=== PATIENT | female | born 1950 | race Caucasian/White ===

== ENCOUNTER → 2017-04-01 | Outpatient (CLI) | payer MEDICARE ==
--- NOTE | 2017-04-02 12:08 | MM ---
Reason for exam: screening (asymptomatic). Last mammogram was performed 1 year ago. History: Patient is postmenopausal. Took estrogen for 10 years beginning at age 35. Physical Findings: A clinical breast exam by your physician is recommended on an annual basis and results should be correlated with mammographic findings. MG 3D Screening Mammo W/Cad Bilateral CC and MLO view(s) were taken. Prior study comparison: March 23, 2016, bilateral MG 3d screening mammo w/cad. March 20, 2015, bilateral MG diagnostic mammo w CAD ILDA. The breast tissue is heterogeneously dense. This may lower the sensitivity of mammography. Focal asymmetry in the left upper outer quadrant is stable. No significant changes when compared with prior studies. ASSESSMENT: Benign, BI-RAD 2 RECOMMENDATION: Routine screening mammogram of both breasts in 1 year.
== END | disposition home or self-care (01) ==
LOC: RADMAMWWP 15:45
PROVIDERS: ATTEND Family Medicine
DX: Z12.31 Encounter for screening mammogram for malignant neoplasm of breast (principal)
CPT/HCPCS: 77063; G0202

== ENCOUNTER → 2017-06-16 | Outpatient (CLI) | payer MEDICARE ==
--- NOTE | 2017-06-16 09:02 | US ---
EXAMINATION TYPE: US liver DATE OF EXAM: 06/16/2017 COMPARISON: 06/30/2016 CLINICAL HISTORY: Hepatitis B B18.1. EXAM MEASUREMENTS: Liver Length: 14.3 cm Gallbladder Wall: 0.2 cm CBD: 0.3 cm Right Kidney: 10.9 x 4.7 x 4.8 cm Pancreas: limited vis Liver: Coarsened heterogenous echotexture that limits evaluation for underlying masses. This is simil ar in degree from the prior. Gallbladder: No stones seen Evidence for sonographic Smith's sign: No CBD: wnl Right Kidney: No hydronephrosis or masses seen IMPRESSION: Stable degree of coarsened hepatic echotexture, likely relating to the patient's underlyi ng known hepatocellular disease although component of fatty infiltration is also possible. No discret e sonographic masses appreciated on this examination.
== END ==
LOC: RADUSWWP 08:12
PROVIDERS: ATTEND Internal Medicine Gastroenterology
DX: B18.1 Chronic viral hepatitis B without delta-agent (principal)
CPT/HCPCS: 76705

== ENCOUNTER → 2018-03-30 | Outpatient (CLI) | payer MEDICARE ==
--- NOTE | 2018-03-30 10:16 | CT ---
EXAMINATION TYPE: CT chest wo con DATE OF EXAM: 03/30/2018 COMPARISON: NONE HISTORY: Cough CT DLP: 701 mGycm, Automated exposure control for dose reduction was used. CONTRAST: Performed injected with 0 mL of Isovue 370. TECHNIQUE: Axial images were obtained at 5 mm thick sections. Reconstructed images are reviewed on [employer] computer in the coronal plane. FINDINGS: Portion of the thyroid visualized is normal. There is a 0.6 cm area of increased density within the mid right middle lobe. Series 4 image 28. Subt le peripheral density measuring 0.4 cm in the posterior lateral right lung. Series 4 image 32. A tiny density or area of pneumonitis change is in the posterior right midlung measuring approximately 0.2 cm. Series 4 image 34. Tiny linear density is adjacent to the left posterior lateral lung No enlarged mediastinal or hilar adenopathy is evident. Small pretracheal lymph node is present dru r the level of the isac. The ascending aorta diameter at the level of the main pulmonary artery is 3.2 cm. The main pulmonary artery diameter at the bifurcation is 2.6 cm. Mild coronary artery calcification is noted. Limited CT sections are obtained through the upper abdomen. Abdomen is essentially unremarkable. IMPRESSIONS: 1. Few nonspecific lung findings discussed above. Follow-up exam can be performed in 6 months to conf irm stability. 2. No acute pulmonary process.
== END | disposition home or self-care (01) ==
LOC: RADCTMAIN 07:55
PROVIDERS: ATTEND Family Medicine
DX: R05 Cough (principal)
CPT/HCPCS: 71250

== ENCOUNTER → 2018-03-30 | Outpatient (CLI) | payer MEDICARE ==
[2018-03-30 09:29] LABS: Prothrombin Time 9.7 sec (9.0-12.0)
[2018-03-30 09:35] LABS: Albumin 4.1 g/dL (3.5-5.0); Calcium 9.6 mg/dL (8.4-10.2); Potassium 4.4 mmol/L (3.5-5.1); Total Protein 6.4 g/dL (6.3-8.2)
[2018-03-30 09:50] LABS: HCT 39.2 % (34.0-46.0); HGB 13.3 gm/dL (11.4-16.0); MCH 31.7 pg (25.0-35.0); MCHC 33.9 g/dL (31.0-37.0); MCV 93.6 fL (80.0-100.0); Mean Platelet Volume 6.7; Platelet Count 227 k/uL (150-450); RBC 4.19 m/uL (3.80-5.40); WBC 4.6 k/uL (3.8-10.6)
[2018-03-30 17:33] LABS: Gliadin AB IgA, Unit 92.7 U/mL
== END | disposition home or self-care (01) ==
LOC: LABWHC1 08:32
PROVIDERS: ATTEND Internal Medicine Gastroenterology
DX: B18.1 Chronic viral hepatitis B without delta-agent (principal); R21 Rash and other nonspecific skin eruption
CPT/HCPCS: 36415; 80053; 82105; 83516; 85027; 85610; 87340

== ENCOUNTER → 2018-04-27 | Outpatient (CLI) | payer MEDICARE ==
--- NOTE | 2018-04-28 15:27 | MM ---
Reason for exam: screening (asymptomatic). Last mammogram was performed 1 year and 1 month ago. History: Patient is postmenopausal. Took estrogen for 10 years beginning at age 35. Physical Findings: A clinical breast exam by your physician is recommended on an annual basis and results should be correlated with mammographic findings. MG 3D Screening Mammo W/Cad Bilateral CC and MLO view(s) were taken. Prior study comparison: April 01, 2017, bilateral MG 3d screening mammo w/cad. March 23, 2016, bilateral MG 3d screening mammo w/cad. Finding: There are dystrophic calcifications in the upper quadrant of the left breast. Asymmetric breast tissue in the left subareolar breast, stable. There is no discrete abnormality. ASSESSMENT: Benign, BI-RAD 2 RECOMMENDATION: Routine screening mammogram of both breasts in 1 year.
== END | disposition home or self-care (01) ==
LOC: RADMAMWWP 10:38
PROVIDERS: ATTEND Family Medicine
DX: Z12.31 Encounter for screening mammogram for malignant neoplasm of breast (principal)
CPT/HCPCS: 77063; 77067

== ENCOUNTER → 2018-09-06 | Outpatient (CLI) | payer MEDICARE ==
--- NOTE | 2018-09-06 10:51 | XR ---
EXAMINATION TYPE: XR knee standing AP BILAT DATE OF EXAM: 09/06/2018 CLINICAL HISTORY: Bilateral knee pain with no known injury. No arthritis. TECHNIQUE: Standing frontal and lateral views of the bilateral knees were obtained. COMPARISON: 03/07/2012. FINDINGS: There is no acute fracture/dislocation evident in in either knee. The overlying soft tissu es appear unremarkable bilaterally. No superficial or joint effusion bilaterally. There is moderate tricompartmental arthropathy on the right and mild tricompartmental arthropathy in the left with small marginal osteophytes, opposing surface sclerosis, and tricompartmental joint spac e narrowing. On the left joint space narrowing is most significant medially and on the right joint sp flori narrowing is most significant laterally. Bilaterally there is also medial compartment and lateral compartment chondrocalcinosis. No suspicious osseous lesion of either knee. Minimal atherosclerosis is seen of the popliteal artery bilaterally. Very small fabellae are seen bilaterally. IMPRESSION: 1. No acute fracture or dislocation in either knee. 2. Moderate right and mild left tricompartmental arthropathy and bilateral chondrocalcinosis that can be in CPPD or other arthropathies.
== END | disposition home or self-care (01) ==
LOC: RADXRMAIN 10:17
PROVIDERS: ATTEND Family Medicine
DX: M17.0 Bilateral primary osteoarthritis of knee (principal); M11.262 Other chondrocalcinosis, left knee; M11.261 Other chondrocalcinosis, right knee
CPT/HCPCS: 73565

== ENCOUNTER → 2019-05-10 | Outpatient (CLI) | payer MEDICARE ==
[2019-05-10 12:32] LABS: Prothrombin Time 10.8 sec (9.0-12.0)
[2019-05-10 12:37] LABS: HCT 41.8 % (34.0-46.0); HGB 13.9 gm/dL (11.4-16.0); MCH 31.3 pg (25.0-35.0); MCHC 33.2 g/dL (31.0-37.0); MCV 94.1 fL (80.0-100.0); Mean Platelet Volume 7.4; Platelet Count 260 k/uL (150-450); RBC 4.44 m/uL (3.80-5.40); RDW 13.4 % (11.5-15.5); WBC 5.3 k/uL (3.8-10.6)
[2019-05-10 18:15] LABS: African American GFR (CKD) 76.7 (60.0-200.0); Albumin 4.5 g/dL (3.80-4.90); Albumin/Globulin Ratio 2.25 (1.60-3.17); Anion Gap 8.4 mmol/L (4.00-12.00); BUN/Creat Ratio 16.67 Ratio (12.00-20.00); Calcium 9.6 mg/dL (8.7-10.3); Carbon Dioxide 26.6 mmol/L (21.6-31.8); Total Bilirubin 0.7 mg/dL (0.3-1.2); Total Protein 6.5 g/dL (6.2-8.2)
[2019-05-10 18:20] LABS: Alpha Fetoprotein, Tumor Mkr 3.9 ng/mL (0.0-7.9)
== END | disposition home or self-care (01) ==
LOC: LABWHC1 11:34
PROVIDERS: ATTEND Internal Medicine Gastroenterology
DX: B18.1 Chronic viral hepatitis B without delta-agent (principal)
CPT/HCPCS: 36415; 80053; 82105; 85027; 85610; 87340

== ENCOUNTER → 2019-05-10 | Outpatient (CLI) | payer MEDICARE ==
--- NOTE | 2019-05-10 14:24 | MM ---
Reason for exam: screening (asymptomatic). Last mammogram was performed 1 year ago. History: Patient is postmenopausal. Took estrogen for 10 years beginning at age 35. Physical Findings: A clinical breast exam by your physician is recommended on an annual basis and results should be correlated with mammographic findings. MG 3D Screening Mammo W/Cad Bilateral CC and MLO view(s) were taken. Prior study comparison: April 27, 2018, bilateral MG 3d screening mammo w/cad. April 01, 2017, bilateral MG 3d screening mammo w/cad. The breast tissue is heterogeneously dense. This may lower the sensitivity of mammography. There are benign appearing dystrophic calcifications in the left breast. Asymmetric breast tissue left anterior breast is stable. There is no discrete abnormality. ASSESSMENT: Negative, BI-RAD 1 RECOMMENDATION: Routine screening mammogram of both breasts in 1 year.
== END | disposition home or self-care (01) ==
LOC: RADMAMWWP 11:08
PROVIDERS: ATTEND Family Medicine
DX: Z12.31 Encounter for screening mammogram for malignant neoplasm of breast (principal)
CPT/HCPCS: 77063; 77067

== ENCOUNTER → 2019-06-13 | Outpatient (CLI) | payer MEDICARE ==
--- NOTE | 2019-06-13 09:58 | US ---
EXAMINATION TYPE: US liver DATE OF EXAM: 06/13/2019 COMPARISON: US dated 06/16/2017, CT, MR CLINICAL HISTORY: V02.61 hepatitis b carrier. Takes medication for HTN, high cholesterol, arthritis; takes Prozac and Vitamins EXAM MEASUREMENTS: Liver Length: 13.1 cm Gallbladder Wall: 0.25 cm CBD: 0.3 cm Right Kidney: 9.9 x 5.2 x 4.2 cm Pancreas: Unremarkable Liver: wnl Gallbladder: wnl Evidence for sonographic Smith's sign: no CBD: wnl Right Kidney: wnl IMPRESSION: The previously seen subtle coarsened hepatic echotexture has resolved in the hepatic echo texture appears within normal limits. The previously questioned component of fatty infiltration is li alyssia improved.
== END | disposition home or self-care (01) ==
LOC: RADUSMAIN 08:52
PROVIDERS: ATTEND Internal Medicine Gastroenterology
DX: B18.1 Chronic viral hepatitis B without delta-agent (principal)
CPT/HCPCS: 76705

== ENCOUNTER → 2020-08-08 | Outpatient (CLI) | payer MEDICARE ==
--- NOTE | 2020-08-08 10:50 | US ---
EXAMINATION TYPE: US liver DATE OF EXAM: 08/08/2020 COMPARISON: US June 13, 2019 and MRI liver July 16, 2014 CLINICAL HISTORY: B18.1 chronic viral hepatitis B w/o delta-agent. Takes medication for high choleste rol, arthritis, HTN and GI reflux. EXAM MEASUREMENTS: Liver Length: 14.4 Gallbladder Wall: 0.1m CBD: 0.2m Right Kidney: 10.4 x 5.3 x 4.5cm Pancreas: hyperechoic Liver: Increased attenuation Gallbladder: wnl Evidence for sonographic Smith's sign: no CBD: wnl Right Kidney: No hydronephrosis or masses seen Visualized liver remains heterogeneously hyperechoic without focal mass or ductal dilatation seen on images saved. No surrounding ascites. IMPRESSION: No new focal intrahepatic mass or intrahepatic ductal dilatation identified.
== END | disposition home or self-care (01) ==
LOC: RADUSWWP 08:49
PROVIDERS: ATTEND Internal Medicine Gastroenterology
DX: B18.1 Chronic viral hepatitis B without delta-agent (principal)
CPT/HCPCS: 76705

== ENCOUNTER → 2021-09-02 | Outpatient (CLI) | payer MEDICARE ==
--- NOTE | 2021-09-03 11:10 | MM ---
Reason for exam: screening (asymptomatic). Last mammogram was performed 1 year and 2 months ago. History: Patient is postmenopausal. Took hormonal contraceptives for 20 years. Took estrogen for 10 years beginning at age 35. Physical Findings: A clinical breast exam by your physician is recommended on an annual basis and results should be correlated with mammographic findings. MG 3D Screening Mammo W/Cad Bilateral CC and MLO view(s) were taken. Prior study comparison: July 10, 2020, bilateral MG 3d screening mammo w/cad. May 10, 2019, bilateral MG 3d screening mammo w/cad. There are scattered fibroglandular densities. There are benign appearing round calcifications in the left breast. There is no discrete abnormality. ASSESSMENT: Benign, BI-RAD 2 RECOMMENDATION: Routine screening mammogram of both breasts in 1 year.
== END | disposition home or self-care (01) ==
LOC: RADMAMWWP 08:24
PROVIDERS: ATTEND Family Medicine
DX: Z12.31 Encounter for screening mammogram for malignant neoplasm of breast (principal)
CPT/HCPCS: 77063; 77067

== ENCOUNTER → 2021-09-02 | Outpatient (CLI) | payer MEDICARE ==
--- NOTE | 2021-09-02 09:28 | US ---
EXAMINATION TYPE: US liver DATE OF EXAM: 09/02/2021 COMPARISON: 08-08-2020 ultrasound liver CLINICAL HISTORY: B18.1 CHR VIRAL HEP B WITHOUT DELTA AGENT. EXAM MEASUREMENTS: Liver Length: 14.8 cm Gallbladder Wall: 0.2 cm CBD: 0.3 cm Right Kidney: 10.2x5.8x4.7 cm Pancreas: Tail obscured by overlying bowel gas Liver: wnl Gallbladder: polyp seen measuring 0.3cm Evidence for sonographic Smith's sign: No CBD: wnl Right Kidney: wnl Pancreas less well seen on current study. Visualized liver remains heterogeneously hyperechoic withou t new focal mass or ductal dilatation seen on images 8. No new surrounding ascites. Right kidney show s no hydronephrosis. No gallstones. IMPRESSION: Stable heterogeneous hyperechoic appearance of liver consistent with diffuse fatty infilt ration and/or underlying hepatocellular disease.
== END | disposition home or self-care (01) ==
LOC: RADUSWWP 08:26
PROVIDERS: ATTEND Internal Medicine Cardiovascular Disease
DX: B18.1 Chronic viral hepatitis B without delta-agent (principal)
CPT/HCPCS: 76705

== ENCOUNTER → 2022-08-05 | Outpatient (CLI) | payer MEDICARE ==
--- NOTE | 2022-08-05 09:33 | US ---
EXAMINATION TYPE: US liver DATE OF EXAM: 08/05/2022 COMPARISON: US liver 09/02/2021 CLINICAL HISTORY: B18.1 chronic viral hep B. Chronic hep B TECHNIQUE: Multiple sonographic images of the right upper quadrant are obtained. FINDINGS: EXAM MEASUREMENTS: Liver Length: 15.3 cm Gallbladder Wall: 0.2 cm CBD: 0.4 cm Right Kidney: 10.5 x 4.6 x 4.4 cm LABEL PASTER NOTES: Pancreas: wnl, tail obscured by overlying bowel gas Liver: Heterogeneous hyperechoic appearance without suspicious focal lesion. No ductal dilatation. No surface nodularity. Gallbladder: Polyp 3 mm as visualized on prior/ otherwise appeared wnl. No pericholecystic fluid or wall thickening. No shadowing calculi. Evidence for sonographic Smith's sign: No CBD: wnl Right Kidney: wnl . No hydronephrosis, solid mass, or shadowing calculi. IMPRESSION: 1. Stable heterogenous hyperechoic appearance of the liver consistent with diffuse fatty infiltratio n and/or underlying hepatocellular disease. No focal hepatic lesion. 2. Stable 3 mm gallbladder polyp.
--- NOTE | 2022-08-05 09:33 | US ---
EXAMINATION TYPE: US liver DATE OF EXAM: 08/05/2022 COMPARISON: US liver 09/02/2021 CLINICAL HISTORY: B18.1 chronic viral hep B. Chronic hep B TECHNIQUE: Multiple sonographic images of the right upper quadrant are obtained. FINDINGS: EXAM MEASUREMENTS: Liver Length: 15.3 cm Gallbladder Wall: 0.2 cm CBD: 0.4 cm Right Kidney: 10.5 x 4.6 x 4.4 cm ROUNDSMAN NOTES: Pancreas: wnl, tail obscured by overlying bowel gas Liver: Heterogeneous hyperechoic appearance without suspicious focal lesion. No ductal dilatation. No surface nodularity. Gallbladder: Polyp 3 mm as visualized on prior/ otherwise appeared wnl. No pericholecystic fluid or wall thickening. No shadowing calculi. Evidence for sonographic Smith's sign: No CBD: wnl Right Kidney: wnl . No hydronephrosis, solid mass, or shadowing calculi. IMPRESSION: 1. Stable heterogenous hyperechoic appearance of the liver consistent with diffuse fatty infiltratio n and/or underlying hepatocellular disease. No focal hepatic lesion. 2. Stable 3 mm gallbladder polyp.
== END | disposition home or self-care (01) ==
LOC: RADUSWWP 08:44
PROVIDERS: ATTEND Internal Medicine Gastroenterology
DX: B18.1 Chronic viral hepatitis B without delta-agent (principal)
CPT/HCPCS: 76705

== ENCOUNTER → 2022-10-27 | Outpatient (CLI) | payer MEDICARE ==
--- NOTE | 2022-10-28 07:50 | MM ---
Reason for Exam: Screening (asymptomatic). Last mammogram was performed 1 year(s) and 2 month(s) ago. Patient History: Menarche at age 13. First Full-Term at age 28. Left ovary removed at age 35. Right ovary removed at age 35. Hysterectomy at age 35. Postmenopausal. Estrogen for 10 years from age 35 until age 45. Patient used Hormonal Contraceptives for 20 years. Risk Values: Zeinab 5 year model risk: 1.9%. NCI Lifetime model risk: 5.6%. Prior Study Comparison: 05/10/2019 Bilateral Screening Mammogram, [facility]. 07/10/2020 Bilateral Screening Mammogram, [facility]. 09/02/2021 Bilateral Screening Mammogram, [facility]. Tissue Density: The breast tissue is almost entirely fat. Findings: Analyzed By CAD. There is no suspicious group of microcalcifications or new suspicious mass in either breast. Overall Assessment: Negative, BI-RAD 1 Management: Screening Mammogram of both breasts in 1 year. A clinical breast exam by your physician is recommended on an annual basis and results should be correlated with mammographic findings. [facility] will attempt to contact patient to return for supplemental views and ultrasound if indicated. Electronically signed and approved by: Jae Miranda DO
== END | disposition home or self-care (01) ==
LOC: RADMAMWWP 11:04
PROVIDERS: ATTEND Family Medicine
DX: Z12.31 Encounter for screening mammogram for malignant neoplasm of breast (principal); Z78.0 Asymptomatic menopausal state
CPT/HCPCS: 77063; 77067

== ENCOUNTER → 2023-06-28 | Outpatient (CLI) | payer MEDICARE ==
--- NOTE | 2023-06-28 09:27 | US ---
EXAMINATION TYPE: US liver DATE OF EXAM: 06/28/2023 COMPARISON: NONE CLINICAL INDICATION: Female, 72 years old with history of B18.1 chronic viral hep B; HEP B TECHNIQUE: Multiple sonographic images of the right upper quadrant are obtained. FINDINGS: EXAM MEASUREMENTS: Liver Length: 14.5 cm Gallbladder Wall: .2 cm CBD: .4 cm Right Kidney: 10.6 x 3.8 x 5.3 cm PROCESS CHEESE COOKER NOTES: Pancreas: Obscured by bowel gas Liver: Increased attenuation Gallbladder: Area seen on previous not seen on today's study. Evidence for sonographic Smith's sign: no CBD: wnl Right Kidney: wnl IMPRESSION: Suggestion of hepatic steatosis. Otherwise unremarkable study.
[2023-06-28 16:43] LABS: Alpha Fetoprotein, Tumor Mkr <3.00 ng/mL (0.00-7.90)
[2023-06-28 17:08] LABS: ALT 18 U/L (8-44); AST 26 U/L (13-35); Albumin 4.6 d/dL (3.8-4.9); Albumin/Globulin Ratio 2.19 Ratio (1.60-3.17); Alkaline Phosphatase 62 U/L (41-126); BUN/Creat Ratio 18.11 Ratio (12.00-20.00); Blood Urea Nitrogen 16.3 mg/dL (9.0-27.0); Calcium 9.9 mg/dL (8.7-10.3); Carbon Dioxide 23.9 mmol/L (21.6-31.8); Chloride 102 mmol/L (96-109); Globulin 2.1 d/dL (1.6-3.3); Glucose 93 mg/dL (70-110); Potassium 4.8 mmol/L (3.5-5.5); Sodium 138 mmol/L (135-145); Total Bilirubin 0.6 mg/dL (0.3-1.2); Total Protein 6.7 d/dL (6.2-8.2)
[2023-06-28 17:53] LABS: HCT 42.3 % (37.2-46.3); HGB 14.2 d/dL (12.0-15.0); MCH 32.5 pg (27.0-32.0); MCHC 33.6 d/dL (32.0-37.0); MCV 96.8 FL (80.0-97.0); Mean Platelet Volume 11.7 FL (9.5-12.2); NRBC Per 100 WBC 0 X 10*3/uL (0.00-0.01); Platelet Count 265 X 10*3/uL (140-440); RBC 4.37 X 10*6/uL (4.10-5.20); RDW 12.2 % (11.5-14.5); WBC 5.09 X 10*3/uL (4.50-10.00)
[2023-06-28 19:44] LABS: Hepatitis B Surface Antigen Conf_React
== END | disposition home or self-care (01) ==
LOC: RADUSWWP 08:39
PROVIDERS: ATTEND Internal Medicine Gastroenterology
DX: B18.1 Chronic viral hepatitis B without delta-agent (principal)
CPT/HCPCS: 76705; 80053; 82105; 85027; 87340

== ENCOUNTER → 2023-12-22 | Outpatient (CLI) | payer MEDICARE ==
--- NOTE | 2023-12-23 10:25 | MM ---
Reason for Exam: Screening (asymptomatic). Last mammogram was performed 1 year(s) and 2 month(s) ago. Patient History: Menarche at age 13. First Full-Term at age 28. Left ovary removed at age 35. Right ovary removed at age 35. Hysterectomy at age 35. Postmenopausal. Estrogen for 10 years from age 35 until age 45. Patient used Hormonal Contraceptives for 20 years. Risk Values: Zeinab 5 year model risk: 1.9%. NCI Lifetime model risk: 5.4%. Prior Study Comparison: 07/10/2020 Bilateral Screening Mammogram, [facility]. 09/02/2021 Bilateral Screening Mammogram, [facility]. 10/27/2022 Bilateral MG 3D screening mammo w/cad, [facility]. Tissue Density: The breasts are heterogeneously dense, which may obscure small masses. Findings: Analyzed By CAD. There is no suspicious group of microcalcifications or new suspicious mass in either breast. Overall Assessment: Benign, BI-RAD 2 Management: Screening Mammogram of both breasts in 1 year. . Patient should continue monthly self-breast exams. A clinical breast exam by your physician is recommended on an annual basis. This exam should not preclude additional follow-up of suspicious palpable abnormalities. Note on Zeinab scores and lifetime risk: 1. A Zeinab score greater than 3% is considered moderate risk. If this is the case, consider specialist referral to assess eligibility for a risk reducing agent. 2. If overall lifetime risk for the development of breast cancer is 20% or higher, the patient may qualify for future screening with alternating mammogram and breast MRI. Electronically signed and approved by: Phi Allen M.D. Radiologis
== END | disposition home or self-care (01) ==
LOC: RADMAMWWP 10:41
PROVIDERS: ATTEND Family Medicine
DX: Z12.31 Encounter for screening mammogram for malignant neoplasm of breast (principal); Z78.0 Asymptomatic menopausal state; Z80.3 Family history of malignant neoplasm of breast
CPT/HCPCS: 77063; 77067

== ENCOUNTER → 2024-06-20 | Outpatient (CLI) | payer MEDICARE ==
--- NOTE | 2024-06-20 10:39 | US ---
EXAMINATION TYPE: US liver DATE OF EXAM: 06/20/2024 COMPARISON: Multiple, most recent = 06/28/2023 CLINICAL INDICATION: Female, 73 years old with history of B18.1 HEP B W/O DELTA AGENT; patient denies any other signs or symptoms at this time TECHNIQUE: Multiple sonographic images of the right upper quadrant are obtained. FINDINGS: EXAM MEASUREMENTS: Liver Length: 12.9 cm Gallbladder Wall: 0.2 cm CBD: 0.4 cm Right Kidney: 10.4 x 4.6 x 4.9 cm WATER VESSEL CAPTAIN NOTES: Pancreas: wnl Liver: wnl Gallbladder: wnl Evidence for sonographic Smith's sign: No CBD: wnl Right Kidney: wnl IMPRESSION: No evidence for acute process.
[2024-06-20 16:50] LABS: HCT 41.8 % (37.2-46.3); HGB 14.2 g/dL (12.0-15.0); MCH 32.6 pg (27.0-32.0); MCV 95.9 FL (80.0-97.0); Mean Platelet Volume 11.3 FL (9.5-12.2); NRBC Per 100 WBC 0 X 10*3/uL (0.00-0.01); Platelet Count 264 X 10*3/uL (140-440); RBC 4.36 X 10*6/uL (4.10-5.20); RDW 12.4 % (11.5-14.5); WBC 6.43 X 10*3/uL (4.50-10.00)
[2024-06-20 17:13] LABS: Alpha Fetoprotein, Tumor Mkr <3.00 ng/mL (0.00-7.90)
[2024-06-20 17:35] LABS: ALT 27 U/L (8-44); AST 31 U/L (13-35); Albumin 4.7 g/dL (3.8-4.9); Albumin/Globulin Ratio 1.96 Ratio (1.60-3.17); Alkaline Phosphatase 75 U/L (41-126); BUN/Creat Ratio 28.22 Ratio (12.00-20.00); Blood Urea Nitrogen 25.4 mg/dL (9.0-27.0); Calcium 10.2 mg/dL (8.7-10.3); Carbon Dioxide 22.5 mmol/L (21.6-31.8); Chloride 102 mmol/L (96-109); Globulin 2.4 g/dL (1.6-3.3); Glucose 105 mg/dL (70-110); Potassium 4.5 mmol/L (3.5-5.5); Sodium 139 mmol/L (135-145); Total Bilirubin 0.9 mg/dL (0.3-1.2); Total Protein 7.1 g/dL (6.2-8.2)
[2024-06-20 19:16] LABS: Hepatitis B Surface Antigen Conf_React
== END | disposition home or self-care (01) ==
LOC: RADUSWWP 09:29
PROVIDERS: ATTEND Internal Medicine Gastroenterology
DX: B18.1 Chronic viral hepatitis B without delta-agent (principal)
CPT/HCPCS: 76705; 80053; 82105; 85027; 87340

== ENCOUNTER → 2025-01-31 | Outpatient (CLI) | payer MEDICARE ==
--- NOTE | 2025-01-31 10:00 | MM ---
Reason for Exam: Screening (asymptomatic). Last mammogram was performed 1 year(s) and 1 month(s) ago. Patient History: Menarche at age 13. First Full-Term at age 28. Left ovary removed at age 35. Right ovary removed at age 35. Hysterectomy at age 35. Postmenopausal. Estrogen for 10 years from age 35 until age 45. Patient used Hormonal Contraceptives for 20 years. Risk Values: Zeinab 5 year model risk: 2.0%. NCI Lifetime model risk: 4.8%. Prior Study Comparison: 09/02/2021 Bilateral Screening Mammogram, [facility]. 10/27/2022 Bilateral MG 3D screening mammo w/cad, [facility]. 12/22/2023 Bilateral MG 3D screening mammo w/cad, [facility]. Tissue Density: There are scattered areas of fibroglandular density. Findings: Analyzed By CAD. There is no suspicious group of microcalcifications or new suspicious mass in either breast. Overall Assessment: Negative, BI-RAD 1 Management: Screening Mammogram of both breasts in 1 year. . Patient should continue monthly self-breast exams. A clinical breast exam by your physician is recommended on an annual basis. This exam should not preclude additional follow-up of suspicious palpable abnormalities. Note on Zeinab scores and lifetime risk: 1. A Zeinab score greater than 3% is considered moderate risk. If this is the case, consider specialist referral to assess eligibility for a risk reducing agent. 2. If overall lifetime risk for the development of breast cancer is 20% or higher, the patient may qualify for future screening with alternating mammogram and breast MRI. [facility], , 01/31/2025 9:57 AM. Electronically signed and approved by: Phi Allen M.D. Radiologis
== END | disposition home or self-care (01) ==
LOC: RADMAMWWP 09:41
PROVIDERS: ATTEND Family Medicine
DX: Z12.31 Encounter for screening mammogram for malignant neoplasm of breast (principal); R92.323 Mammographic fibroglandular density, bilateral breasts; Z78.0 Asymptomatic menopausal state; Z92.0 Personal history of contraception
CPT/HCPCS: 77063; 77067